=== PATIENT | male | born 1970 | race Caucasian/White ===

== ENCOUNTER → 2016-07-07 | Outpatient (CLI) | payer BC, MEDICAID ==
[~2016-07-07] MED LIST: AMOX500T2 PO; IOHEXOL 300 MG/ML 75ml INJECTION ONE; MELO7.5T12; NORMAL SALINE 100 ML ONE; SALINE FLUSH 10ml SYRINGE ONE
--- NOTE | 2016-07-07 08:27 | DI ---
Indication: ITS.REASON: J98.4 Other disorders of lung PROCEDURE: CT CHEST W/CONTRAST: Encounter: Initial Comparison: Chest x-ray dated June 25, 2016 Technique: Axial CT images were performed through the chest after the administration of intravenous contrast. Coronal and sagittal two-dimensional reformats. Automated Exposure Control and Iterative Reconstruction dose reducing techniques were utilized. Contrast: Omnipaque 300 74 mL Findings: There is mild emphysema present with a centrilobular pattern. The small pulmonary nodules in the left lung described on the comparison chest x-ray appear to represent benign granulomas. There is no worrisome pulmonary nodule or mass appreciated. These are below the size threshold for required follow-up. No pleural effusion or pneumothorax. No consolidative pneumonia. The central airways are widely patent. No axillary or mediastinal lymphadenopathy. Thyroid gland is unremarkable. Heart size is normal. Great vessels appear normal. The upper abdomen shows no acute findings. Bone windows are unremarkable. Impression: Negative chest CT. No concerning pulmonary nodules identified. .
== END ==
LOC: IMA 06:24
PROVIDERS: ATTEND Family Medicine
DX: J98.4 Other disorders of lung (principal)
CPT/HCPCS: 71260; J7050; Q9967